=== PATIENT | male | born 2000 | race Caucasian/White ===

== ENCOUNTER 2019-03-13 15:32 | Emergency (ER) | payer OTHER ==
[~2019-03-13] VITALS: Ht 175.3 cm; Wt 73.0 kg
[2019-03-13] MEDS ORDERED: ZOLOFT25 MG PO (15:45)
[2019-03-13] MEDS ORDERED: PROPRANOLOL 8080 MG PO (15:47)
[2019-03-13] MEDS ORDERED: XANAX 1 MG TABLE1 MG PO (15:50)
[2019-03-13 16:08] VITALS: BP 112/79
== END 2019-03-13 16:11 | disposition home or self-care (01) ==
LOC: M.ERS 15:32
DX: F41.9 Anxiety disorder, unspecified (principal); E03.9 Hypothyroidism, unspecified; F32.9 Major depressive disorder, single episode, unspecified; Z91.013 Allergy to seafood